=== PATIENT | female | born 1935 | race Caucasian/White ===

== ENCOUNTER → 2017-10-05 | Outpatient (CLI) | payer MEDICARE, OTHER | END | disposition home or self-care (01) | LOC: RAD 10:41 | DX: I10 Essential (primary) hypertension (principal) | CPT/HCPCS: 71046 ==

== ENCOUNTER 2018-08-29 19:36 | Emergency (ER) | payer MEDICARE, OTHER ==
[2018-08-29 20:15] LABS: ADD UMIC NO; UR ASCORBIC ACID NEGATIVE (NEGATIVE); UR BACTERIA FEW /HPF (NONE SEEN); UR BILIRUBIN (Dip) NEGATIVE (NEGATIVE); UR BLOOD (Dip) NEGATIVE (NEGATIVE); UR CLARITY SLIGHTLY CLOUDY (CLEAR); UR COLOR YELLOW (YELLOW); UR GLUCOSE (Dip) NEGATIVE (NEGATIVE); UR KETONES (Dip) NEGATIVE (NEGATIVE); UR LEUKOCYTE ESTERASE (Dip) NEGATIVE Leu/ul (NEGATIVE); UR NITRITE (Dip) NEGATIVE (NEGATIVE); UR RBC 1 /HPF (0-5); UR SQUAMOUS EPITHELIAL CELL FEW /HPF (FEW); UR TOTAL PROTEIN (Dip) NEGATIVE (NEGATIVE); UR UROBILINOGEN (Dip) NEGATIVE (NEGATIVE); UR WBC 3 /HPF (0-5)
[2018-08-29] MEDS: SOD CHLORIDE 0.9% 1,000 ML IV (20:16)
[2018-08-29 20:18] LABS: ADD MAN DIFF? NO
[2018-08-29 20:19] LABS: WHITE BLOOD COUNT 10.2 10^3/ul (4.8-10.8)
[2018-08-29 20:19] LABS: BASOPHIL # 0.1 10^3/ul (0.0-0.1); BASOPHILS % 0.6 % (0.0-2.0); EOSINOPHILS # 0.2 10^3/ul (0.0-0.5); EOSINOPHILS % 2.2 % (0.0-7.0); HEMOGLOBIN 12.7 g/dl (12.0-16.0); LYMPHOCYTES # 2.1 10^3/ul (0.8-2.9); LYMPHOCYTES % 20.4 % (15.0-51.0); MEAN CORPUSCULAR HEMOGLOBIN 27.5 pg (29.0-33.0); MEAN CORPUSCULAR HGB CONC 31.8 g/dl (32.0-37.0); MEAN CORPUSCULAR VOLUME 86.8 fl (82.0-101.0); MEAN PLATELET VOLUME 9.4 fl (7.4-10.4); MONOCYTE # 0.8 10^3/ul (0.3-0.9); MONOCYTES % 7.9 % (0.0-11.0); NEUTROPHILS % 68.2 % (39.0-77.0); PLATELET COUNT 385 10^3/UL (140-415); RED BLOOD COUNT 4.61 10^6/ul (4.20-5.40); RED CELL DISTRIBUTION WIDTH 14.6 % (11.5-14.5)
[2018-08-29 20:37] LABS: ALANINE AMINOTRANSFERASE 22 IU/L (13-69); ALBUMIN 4.6 g/dl (3.3-4.9); ALKALINE PHOSPHATASE 102 IU/L (42-121); ANION GAP 13 (5-13); ASPARTATE AMINO TRANSFERASE 49 IU/L (15-46); BILIRUBIN,INDIRECT 0.3 mg/dl (0-1.1); BILIRUBIN,TOTAL 0.3 mg/dl (0.2-1.3); BLOOD UREA NITROGEN 21 mg/dl (7-20); CALCIUM 9.9 mg/dl (8.4-10.2); CARBON DIOXIDE 29 mmol/L (21-31); CHLORIDE 99 mmol/L (97-110); GLUCOSE 182 mg/dl (70-220); LIPASE 275 U/L (23-300); POTASSIUM 4.4 mmol/L (3.5-5.1); SODIUM 141 mmol/L (135-144); TOTAL PROTEIN 9.7 g/dl (6.1-8.1)
[2018-08-29 20:49] LABS: TROPONIN-I < 0.012 ng/ml (0.000-0.120)
[2018-08-29] MEDS: ACETAMINOPHEN 500 MG TAB PO (23:15)
== END 2018-08-29 23:18 | disposition home or self-care (01) ==
LOC: E/R 19:36
DX: M79.605 Pain in left leg (principal); M79.604 Pain in right leg; I10 Essential (primary) hypertension; F17.210 Nicotine dependence, cigarettes, uncomplicated
CPT/HCPCS: 71045; 80053; 81001; 81003; 82962; 83690; 84484; 85025; 93005; 99285-25

== ENCOUNTER 2018-09-03 15:47 | Inpatient (IN) | payer MEDICARE, OTHER ==
[2018-09-03] MEDS ORDERED: ACETAMINOPHEN 325 MG TAB PO (19:30)
[2018-09-03] MEDS ORDERED: ONDANSETRON 4 MG INJ IV (19:30)
[2018-09-03 19:57] LABS: ADD MAN DIFF? NO
[2018-09-03 19:59] LABS: BASOPHIL # 0.1 10^3/ul (0.0-0.1); BASOPHILS % 0.6 % (0.0-2.0); EOSINOPHILS # 0.1 10^3/ul (0.0-0.5); EOSINOPHILS % 0.8 % (0.0-7.0); HEMATOCRIT 39.4 % (37.0-47.0); HEMOGLOBIN 12.3 g/dl (12.0-16.0); LYMPHOCYTES % 18.3 % (15.0-51.0); MEAN CORPUSCULAR HEMOGLOBIN 27.5 pg (29.0-33.0); MEAN CORPUSCULAR HGB CONC 31.2 g/dl (32.0-37.0); MEAN CORPUSCULAR VOLUME 87.9 fl (82.0-101.0); MEAN PLATELET VOLUME 9.6 fl (7.4-10.4); MONOCYTE # 0.8 10^3/ul (0.3-0.9); MONOCYTES % 7.7 % (0.0-11.0); NEUTROPHIL # 7.7 10^3/ul (1.6-7.5); NEUTROPHILS % 72.2 % (39.0-77.0); PLATELET COUNT 324 10^3/UL (140-415); RED BLOOD COUNT 4.48 10^6/ul (4.20-5.40); RED CELL DISTRIBUTION WIDTH 14.6 % (11.5-14.5)
[2018-09-03 19:59] LABS: WHITE BLOOD COUNT 10.7 10^3/ul (4.8-10.8)
[2018-09-03 20:23] LABS: MAGNESIUM 2.1 mg/dl (1.7-2.5)
[2018-09-03 20:23] LABS: ANION GAP 12 (5-13); BLOOD UREA NITROGEN 25 mg/dl (7-20); CALCIUM 9.1 mg/dl (8.4-10.2); CARBON DIOXIDE 27 mmol/L (21-31); CHLORIDE 99 mmol/L (97-110); CREATININE 1.21 mg/dl (0.44-1.00); GLUCOSE 265 mg/dl (70-220); POTASSIUM 5.1 mmol/L (3.5-5.1); SODIUM 138 mmol/L (135-144)
[2018-09-03 20:34] LABS: TROPONIN-I < 0.012 ng/ml (0.000-0.120)
[2018-09-03 20:39] LABS: FREE T4 (FREE THYROXINE) 1.46 ng/dl (0.85-1.93)
[2018-09-03] MEDS: SOD CHLORIDE 0.45% 1,000 ML IV (22:30)
[2018-09-03] MEDS: LEVOFLOXACIN 500MG/D5W (PMX) 100 ML IVPB (22:30)
[2018-09-03] MEDS ORDERED: GLUCOSE GEL 15 GRAM TUBE PO ×2 (23:30)
[2018-09-03] MEDS ORDERED: GLUCAGON 1 MG INJ IM (23:30)
[2018-09-03] MEDS ORDERED: GLUCOSE GEL 15 GRAM TUBE BUCCAL (23:30)
[2018-09-03] MEDS ORDERED: DEXTROSE 50% 50 ML SYRINGE IV ×2 (23:30)
[2018-09-04 01:49] LABS: CREATINE KINASE 57 IU/L (23-200)
[2018-09-04 02:05] LABS: CK INDEX 1.4; CK-MB 0.81 ng/ml (0.0-2.4); TROPONIN-I < 0.012 ng/ml (0.000-0.120)
[2018-09-04 05:33] LABS: ADD MAN DIFF? NO
[2018-09-04 05:46] LABS: BASOPHIL # 0.1 10^3/ul (0.0-0.1); BASOPHILS % 0.8 % (0.0-2.0); EOSINOPHILS # 0.1 10^3/ul (0.0-0.5); EOSINOPHILS % 1.8 % (0.0-7.0); HEMATOCRIT 37.3 % (37.0-47.0); HEMOGLOBIN 11.8 g/dl (12.0-16.0); LYMPHOCYTES % 26.5 % (15.0-51.0); MEAN CORPUSCULAR HEMOGLOBIN 27.6 pg (29.0-33.0); MEAN CORPUSCULAR HGB CONC 31.6 g/dl (32.0-37.0); MEAN CORPUSCULAR VOLUME 87.1 fl (82.0-101.0); MEAN PLATELET VOLUME 9.7 fl (7.4-10.4); MONOCYTE # 0.6 10^3/ul (0.3-0.9); MONOCYTES % 8.6 % (0.0-11.0); NEUTROPHIL # 4.6 10^3/ul (1.6-7.5); PLATELET COUNT 294 10^3/UL (140-415); RED BLOOD COUNT 4.28 10^6/ul (4.20-5.40); RED CELL DISTRIBUTION WIDTH 14.5 % (11.5-14.5)
[2018-09-04 05:46] LABS: WHITE BLOOD COUNT 7.4 10^3/ul (4.8-10.8)
[2018-09-04 06:17] LABS: TROPONIN-I < 0.012 ng/ml (0.000-0.120)
[2018-09-04 06:19] LABS: ANION GAP 10 (5-13); BLOOD UREA NITROGEN 22 mg/dl (7-20); CALCIUM 8.9 mg/dl (8.4-10.2); CARBON DIOXIDE 28 mmol/L (21-31); CHLORIDE 101 mmol/L (97-110); CREATININE 1.21 mg/dl (0.44-1.00); GLUCOSE 227 mg/dl (70-220); POTASSIUM 4.6 mmol/L (3.5-5.1); SODIUM 139 mmol/L (135-144)
[2018-09-04] MEDS: ACCU-CHEK XX ×4 (07:05→21:00)
[2018-09-04] MEDS: INSULIN ASPART [NOVOLOG] 3 ML PEN SC ×2 (07:18→17:48)
[2018-09-04] MEDS: LOSARTAN 50 MG TAB PO (08:41)
[2018-09-04] MEDS: ASPIRIN (EC) 81 MG TAB PO (08:41)
[2018-09-04] MEDS: HYDROCHLOROTHIAZIDE 25 MG TAB PO (08:42)
[2018-09-04] MEDS: AMLODIPINE 10 MG TAB PO (08:43)
[2018-09-04] MEDS: ENOXAPARIN 40 MG/0.4 ML SYG SC (08:53)
[2018-09-04 09:12] LABS: CREATINE KINASE 48 IU/L (23-200)
[2018-09-04 09:23] LABS: CK INDEX 1.5; CK-MB 0.73 ng/ml (0.0-2.4); TROPONIN-I < 0.012 ng/ml (0.000-0.120)
[2018-09-04] MEDS: SOD CHLORIDE 0.45% 1,000 ML IV (14:40)
[2018-09-04 18:18] LABS: CHOL/HDL RATIO 4.2 RATIO; HDL CHOLESTEROL 33 mg/dl (33-92); LDL CHOLESTEROL,CALCULATED 65 mg/dl; TRIGLYCERIDES 214 mg/dl (0-149)
[2018-09-04 18:18] LABS: CHOLESTEROL 141 mg/dl (100-200)
[2018-09-04] MEDS: ATORVASTATIN 20 MG TAB PO (20:34)
[2018-09-04] MEDS: METOPROLOL 25 MG TAB PO (20:34)
[2018-09-04] MEDS: INSULIN GLARGINE [LANTus] (100 UNITS/ML) SYG SC (20:39)
[2018-09-05 06:18] LABS: ADD MAN DIFF? NO
[2018-09-05 06:21] LABS: WHITE BLOOD COUNT 7.6 10^3/ul (4.8-10.8)
[2018-09-05 06:21] LABS: BASOPHIL # 0.1 10^3/ul (0.0-0.1); EOSINOPHILS # 0.3 10^3/ul (0.0-0.5); EOSINOPHILS % 3.5 % (0.0-7.0); HEMOGLOBIN 11.6 g/dl (12.0-16.0); LYMPHOCYTES # 2.2 10^3/ul (0.8-2.9); LYMPHOCYTES % 28.5 % (15.0-51.0); MEAN CORPUSCULAR HEMOGLOBIN 27.2 pg (29.0-33.0); MEAN CORPUSCULAR HGB CONC 31.4 g/dl (32.0-37.0); MEAN CORPUSCULAR VOLUME 86.9 fl (82.0-101.0); MEAN PLATELET VOLUME 9.6 fl (7.4-10.4); MONOCYTE # 0.6 10^3/ul (0.3-0.9); MONOCYTES % 7.7 % (0.0-11.0); NEUTROPHIL # 4.5 10^3/ul (1.6-7.5); NEUTROPHILS % 58.8 % (39.0-77.0); PLATELET COUNT 302 10^3/UL (140-415); RED BLOOD COUNT 4.26 10^6/ul (4.20-5.40); RED CELL DISTRIBUTION WIDTH 14.2 % (11.5-14.5)
[2018-09-05] MEDS: ACCU-CHEK XX ×4 (07:00→21:00)
[2018-09-05 07:03] LABS: ANION GAP 10 (5-13); BLOOD UREA NITROGEN 22 mg/dl (7-20); CALCIUM 8.9 mg/dl (8.4-10.2); CARBON DIOXIDE 26 mmol/L (21-31); CHLORIDE 102 mmol/L (97-110); CREATININE 1.15 mg/dl (0.44-1.00); GLUCOSE 229 mg/dl (70-220); POTASSIUM 4.2 mmol/L (3.5-5.1); SODIUM 138 mmol/L (135-144)
[2018-09-05] MEDS: SOD CHLORIDE 0.45% 1,000 ML IV ×2 (07:20→16:28)
[2018-09-05 08:02] LABS: HEMOGLOBIN A1C 8.6 % (0-5.9)
[2018-09-05] MEDS: LOSARTAN 50 MG TAB PO (08:14)
[2018-09-05] MEDS: AMLODIPINE 10 MG TAB PO (08:15)
[2018-09-05] MEDS: ASPIRIN (EC) 81 MG TAB PO (08:15)
[2018-09-05] MEDS: HYDROCHLOROTHIAZIDE 25 MG TAB PO (08:15)
[2018-09-05] MEDS: METOPROLOL 25 MG TAB PO ×2 (08:17→20:15)
[2018-09-05] MEDS: INSULIN ASPART [NOVOLOG] 3 ML PEN SC ×3 (08:19→17:25)
[2018-09-05] MEDS: ENOXAPARIN 30 MG/0.3 ML SYG SC (08:19)
[2018-09-05] MEDS ORDERED: INSULIN ASPART [NOVOLOG] 3 ML PEN SC (11:30)
[2018-09-05] MEDS: ACETAMINOPHEN 325 MG TAB PO (20:12)
[2018-09-05] MEDS: ATORVASTATIN 20 MG TAB PO (20:15)
[2018-09-05] MEDS: INSULIN GLARGINE [LANTus] (100 UNITS/ML) SYG SC (20:16)
[2018-09-06 06:12] LABS: ADD MAN DIFF? NO
[2018-09-06 06:20] LABS: WHITE BLOOD COUNT 7.5 10^3/ul (4.8-10.8)
[2018-09-06 06:20] LABS: BASOPHIL # 0.1 10^3/ul (0.0-0.1); BASOPHILS % 0.8 % (0.0-2.0); EOSINOPHILS # 0.3 10^3/ul (0.0-0.5); EOSINOPHILS % 4.4 % (0.0-7.0); HEMATOCRIT 38.2 % (37.0-47.0); LYMPHOCYTES # 2.5 10^3/ul (0.8-2.9); LYMPHOCYTES % 33.5 % (15.0-51.0); MEAN CORPUSCULAR HEMOGLOBIN 27.4 pg (29.0-33.0); MEAN CORPUSCULAR HGB CONC 31.4 g/dl (32.0-37.0); MEAN CORPUSCULAR VOLUME 87.2 fl (82.0-101.0); MEAN PLATELET VOLUME 9.5 fl (7.4-10.4); MONOCYTE # 0.6 10^3/ul (0.3-0.9); MONOCYTES % 7.6 % (0.0-11.0); NEUTROPHILS % 53.2 % (39.0-77.0); PLATELET COUNT 316 10^3/UL (140-415); RED BLOOD COUNT 4.38 10^6/ul (4.20-5.40); RED CELL DISTRIBUTION WIDTH 13.8 % (11.5-14.5)
[2018-09-06 06:54] LABS: ANION GAP 8 (5-13); BLOOD UREA NITROGEN 28 mg/dl (7-20); CARBON DIOXIDE 28 mmol/L (21-31); CHLORIDE 104 mmol/L (97-110); CREATININE 1.23 mg/dl (0.44-1.00); GLUCOSE 169 mg/dl (70-220); POTASSIUM 4.4 mmol/L (3.5-5.1); SODIUM 140 mmol/L (135-144)
[2018-09-06] MEDS: ACCU-CHEK XX ×4 (07:00→21:00)
[2018-09-06 07:50] LABS: HEPATITIS B SURFACE ANTIGEN NEGATIVE (NEGATIVE)
[2018-09-06] MEDS: INSULIN ASPART [NOVOLOG] 3 ML PEN SC ×3 (08:04→17:27)
[2018-09-06] MEDS: ENOXAPARIN 30 MG/0.3 ML SYG SC (08:04)
[2018-09-06] MEDS: SOD CHLORIDE 0.45% 1,000 ML IV ×2 (08:05)
[2018-09-06] MEDS: HYDROCHLOROTHIAZIDE 25 MG TAB PO (08:06)
[2018-09-06] MEDS: METOPROLOL 25 MG TAB PO ×2 (08:06→21:17)
[2018-09-06] MEDS: LOSARTAN 50 MG TAB PO (08:06)
[2018-09-06] MEDS: ASPIRIN (EC) 81 MG TAB PO (08:06)
[2018-09-06] MEDS: AMLODIPINE 10 MG TAB PO (08:06)
[2018-09-06 08:08] LABS: HEPATITIS C VIRAL ANTIBODY NEGATIVE (NEGATIVE)
[2018-09-06 12:33] LABS: MAGNESIUM 2.1 mg/dl (1.7-2.5)
[2018-09-06] MEDS: ATORVASTATIN 20 MG TAB PO (21:17)
[2018-09-06] MEDS: ACETAMINOPHEN 325 MG TAB PO (21:18)
[2018-09-06] MEDS: INSULIN GLARGINE [LANTus] (100 UNITS/ML) SYG SC (21:31)
[2018-09-07] MEDS: ACCU-CHEK XX ×3 (07:00→17:30)
[2018-09-07] MEDS: ASPIRIN (EC) 81 MG TAB PO (08:19)
[2018-09-07] MEDS: HYDROCHLOROTHIAZIDE 25 MG TAB PO (08:19)
[2018-09-07] MEDS: METOPROLOL 25 MG TAB PO (08:20)
[2018-09-07] MEDS: AMLODIPINE 10 MG TAB PO (08:20)
[2018-09-07] MEDS: LOSARTAN 50 MG TAB PO (08:20)
[2018-09-07] MEDS: INSULIN ASPART [NOVOLOG] 3 ML PEN SC ×3 (08:27→17:30)
[2018-09-07] MEDS: ENOXAPARIN 30 MG/0.3 ML SYG SC (08:28)
== END 2018-09-07 17:39 | disposition home or self-care (01) | DRG 309 ==
LOC: E/R 15:47 → 6WM 19:31
DX: R00.0 Tachycardia, unspecified (principal); N17.9 Acute kidney failure, unspecified; E11.65 Type 2 diabetes mellitus with hyperglycemia; I10 Essential (primary) hypertension; Z87.891 Personal history of nicotine dependence; R07.9 Chest pain, unspecified; D64.9 Anemia, unspecified; Z86.11 Personal history of tuberculosis
CPT/HCPCS: 36415; 71045; 71250; 80048; 80061; 82550; 82553; 82962; 83036; 83735; 84439; 84443; 84484; 85025; 86803; 87340; 93005; 93306; 93970; 99217; 99285-25

== ENCOUNTER 2018-09-27 16:01 | Inpatient (IN) | payer MEDICARE, OTHER ==
[2018-09-27 20:25] LABS: ADD MAN DIFF? NO
[2018-09-27 20:31] LABS: WHITE BLOOD COUNT 9.5 10^3/ul (4.8-10.8)
[2018-09-27 20:31] LABS: BASOPHIL # 0.1 10^3/ul (0.0-0.1); BASOPHILS % 0.5 % (0.0-2.0); EOSINOPHILS # 0.2 10^3/ul (0.0-0.5); HEMATOCRIT 33.6 % (37.0-47.0); HEMOGLOBIN 10.5 g/dl (12.0-16.0); LYMPHOCYTES # 1.8 10^3/ul (0.8-2.9); LYMPHOCYTES % 19.3 % (15.0-51.0); MEAN CORPUSCULAR HEMOGLOBIN 27.3 pg (29.0-33.0); MEAN CORPUSCULAR HGB CONC 31.3 g/dl (32.0-37.0); MEAN CORPUSCULAR VOLUME 87.5 fl (82.0-101.0); MEAN PLATELET VOLUME 9.6 fl (7.4-10.4); MONOCYTE # 0.8 10^3/ul (0.3-0.9); MONOCYTES % 8.2 % (0.0-11.0); NEUTROPHIL # 6.6 10^3/ul (1.6-7.5); NEUTROPHILS % 69.6 % (39.0-77.0); PLATELET COUNT 270 10^3/UL (140-415); RED BLOOD COUNT 3.84 10^6/ul (4.20-5.40); RED CELL DISTRIBUTION WIDTH 14.4 % (11.5-14.5)
[2018-09-27 20:55] LABS: ANION GAP 10 (5-13); BLOOD UREA NITROGEN 31 mg/dl (7-20); CALCIUM 8.6 mg/dl (8.4-10.2); CARBON DIOXIDE 30 mmol/L (21-31); CHLORIDE 94 mmol/L (97-110); CREATININE 1.53 mg/dl (0.44-1.00); GLUCOSE 147 mg/dl (70-220); POTASSIUM 4.7 mmol/L (3.5-5.1); SODIUM 134 mmol/L (135-144)
[2018-09-27] MEDS ORDERED: ACETAMINOPHEN 325 MG TAB PO (22:30)
[2018-09-27] MEDS: HYDROCODONE/APAP (5/325) TAB PO (22:49)
[2018-09-27] MEDS: SOD CHLORIDE 0.9% 1,000 ML IV (22:51)
[2018-09-27] MEDS ORDERED: GLUCAGON 1 MG INJ IM (23:00)
[2018-09-27] MEDS ORDERED: GLUCOSE GEL 15 GRAM TUBE PO ×2 (23:00)
[2018-09-27] MEDS ORDERED: DEXTROSE 50% 50 ML SYRINGE IV ×2 (23:00)
[2018-09-27] MEDS ORDERED: GLUCOSE GEL 15 GRAM TUBE BUCCAL (23:00)
[2018-09-28] MEDS: ACCU-CHEK XX ×5 (01:30→20:39)
[2018-09-28] MEDS: PANTOPRAZOLE (EC) 40 MG TAB PO (06:09)
[2018-09-28] MEDS: LEVOTHYROXINE 50 MCG TAB PO (06:09)
[2018-09-28 07:42] LABS: ALANINE AMINOTRANSFERASE 20 IU/L (13-69); ALBUMIN 3.8 g/dl (3.3-4.9); ALBUMIN/GLOBULIN RATIO 1.11; ALKALINE PHOSPHATASE 61 IU/L (42-121); ANION GAP 7 (5-13); ASPARTATE AMINO TRANSFERASE 25 IU/L (15-46); BILIRUBIN,INDIRECT 0.3 mg/dl (0-1.1); BILIRUBIN,TOTAL 0.3 mg/dl (0.2-1.3); BLOOD UREA NITROGEN 28 mg/dl (7-20); CALCIUM 8.6 mg/dl (8.4-10.2); CARBON DIOXIDE 31 mmol/L (21-31); CHLORIDE 99 mmol/L (97-110); CREATININE 1.33 mg/dl (0.44-1.00); GLUCOSE 196 mg/dl (70-220); POTASSIUM 4.5 mmol/L (3.5-5.1); SODIUM 137 mmol/L (135-144); TOTAL PROTEIN 7.2 g/dl (6.1-8.1)
[2018-09-28] MEDS: GABAPENTIN 300 MG CAP PO ×2 (08:41→20:30)
[2018-09-28] MEDS: FENOFIBRATE 145 MG TAB PO (08:41)
[2018-09-28] MEDS: METOPROLOL 25 MG TAB PO ×2 (08:42→20:30)
[2018-09-28] MEDS: AMLODIPINE 10 MG TAB PO (08:42)
[2018-09-28] MEDS: ASPIRIN (EC) 81 MG TAB PO (08:42)
[2018-09-28] MEDS: LOSARTAN 50 MG TAB PO (08:43)
[2018-09-28] MEDS: INSULIN ASPART [NOVOLOG] 3 ML PEN SC ×3 (08:45→17:03)
[2018-09-28] MEDS ORDERED: metFORMIN 500 MG TAB PO (18:00)
[2018-09-28] MEDS: ATORVASTATIN 20 MG TAB PO (20:29)
[2018-09-28] MEDS: INSULIN GLARGINE [LANTus] (100 UNITS/ML) SYG SC (20:31)
[2018-09-28] MEDS ORDERED: INSULIN GLARGINE [LANTus] (100 UNITS/ML) SYG SC (21:00)
[2018-09-28] MEDS: SENNA TAB PO (22:54)
[2018-09-29] MEDS: ACCU-CHEK XX ×5 (02:00→20:50)
[2018-09-29] MEDS: PANTOPRAZOLE (EC) 40 MG TAB PO (06:08)
[2018-09-29] MEDS: LEVOTHYROXINE 50 MCG TAB PO (06:08)
[2018-09-29] MEDS: ASPIRIN (EC) 81 MG TAB PO (08:30)
[2018-09-29] MEDS: METOPROLOL 25 MG TAB PO ×2 (08:30→20:31)
[2018-09-29] MEDS: FENOFIBRATE 145 MG TAB PO (08:30)
[2018-09-29] MEDS: AMLODIPINE 10 MG TAB PO (08:30)
[2018-09-29] MEDS: SENNA TAB PO ×2 (08:30→20:30)
[2018-09-29] MEDS: LOSARTAN 50 MG TAB PO (08:31)
[2018-09-29] MEDS: GABAPENTIN 300 MG CAP PO ×2 (08:31→20:31)
[2018-09-29] MEDS: FUROSEMIDE 20 MG INJ IV (08:31)
[2018-09-29] MEDS: HYDROCODONE/APAP (5/325) TAB PO (08:32)
[2018-09-29] MEDS: ENOXAPARIN 30 MG/0.3 ML SYG SC (08:34)
[2018-09-29] MEDS: INSULIN ASPART [NOVOLOG] 3 ML PEN SC ×3 (08:34→17:13)
[2018-09-29] MEDS ORDERED: IOHEXOL 14.3 MG(I)/ML (ADULT) BTL PO (12:00)
[2018-09-29 14:20] LABS: CARCINOEMBRYONIC ANTIGEN 0.9 ng/ml (0.0-5.0)
[2018-09-29 14:59] LABS: IMMUNOGLOBULIN G 1475 mg/dl (700-1600); IMMUNOGLOBULIN M 88 mg/dl (40-230)
[2018-09-29] MEDS: IODIXANOL LOCM 100 ML BTL (15:13)
[2018-09-29] MEDS: SOD CHLORIDE 0.9% 100 ML (15:13)
[2018-09-29 17:19] LABS: IMMUNOGLOBULIN A 439 mg/dl (70-400)
[2018-09-29] MEDS: ATORVASTATIN 20 MG TAB PO (20:30)
[2018-09-29] MEDS: INSULIN GLARGINE [LANTus] (100 UNITS/ML) SYG SC (20:48)
[2018-09-30] MEDS: ACCU-CHEK XX ×5 (01:24→21:23)
[2018-09-30 04:57] LABS: PROTEIN, TOTAL 7.6 g/dL (6.1-8.1)
[2018-09-30] MEDS: LEVOTHYROXINE 50 MCG TAB PO (06:06)
[2018-09-30] MEDS: PANTOPRAZOLE (EC) 40 MG TAB PO (06:06)
[2018-09-30 06:38] LABS: ADD MAN DIFF? NO
[2018-09-30 06:43] LABS: WHITE BLOOD COUNT 6.5 10^3/ul (4.8-10.8)
[2018-09-30 06:43] LABS: BASOPHILS % 0.6 % (0.0-2.0); EOSINOPHILS # 0.4 10^3/ul (0.0-0.5); EOSINOPHILS % 5.4 % (0.0-7.0); HEMATOCRIT 33.8 % (37.0-47.0); HEMOGLOBIN 10.7 g/dl (12.0-16.0); LYMPHOCYTES # 1.6 10^3/ul (0.8-2.9); LYMPHOCYTES % 24.9 % (15.0-51.0); MEAN CORPUSCULAR HEMOGLOBIN 27.2 pg (29.0-33.0); MEAN CORPUSCULAR HGB CONC 31.7 g/dl (32.0-37.0); MEAN PLATELET VOLUME 9.7 fl (7.4-10.4); MONOCYTE # 0.7 10^3/ul (0.3-0.9); NEUTROPHIL # 3.8 10^3/ul (1.6-7.5); NEUTROPHILS % 58.6 % (39.0-77.0); PLATELET COUNT 338 10^3/UL (140-415); RED BLOOD COUNT 3.93 10^6/ul (4.20-5.40); RED CELL DISTRIBUTION WIDTH 14.1 % (11.5-14.5)
[2018-09-30 07:12] LABS: ANION GAP 11 (5-13)
[2018-09-30 07:28] LABS: BLOOD UREA NITROGEN 29 mg/dl (7-20); CALCIUM 8.8 mg/dl (8.4-10.2); CARBON DIOXIDE 29 mmol/L (21-31); CHLORIDE 101 mmol/L (97-110); GLUCOSE 126 mg/dl (70-220); POTASSIUM 4.8 mmol/L (3.5-5.1); SODIUM 141 mmol/L (135-144)
[2018-09-30] MEDS: FUROSEMIDE 20 MG INJ IV (08:43)
[2018-09-30] MEDS: LOSARTAN 50 MG TAB PO (08:44)
[2018-09-30] MEDS: METOPROLOL 25 MG TAB PO ×2 (08:44→21:22)
[2018-09-30] MEDS: FENOFIBRATE 145 MG TAB PO (08:44)
[2018-09-30] MEDS: SENNA TAB PO ×2 (08:44→21:00)
[2018-09-30] MEDS: ASPIRIN (EC) 81 MG TAB PO (08:44)
[2018-09-30] MEDS: GABAPENTIN 300 MG CAP PO ×2 (08:44→21:20)
[2018-09-30] MEDS: AMLODIPINE 10 MG TAB PO (08:45)
[2018-09-30] MEDS: INSULIN ASPART [NOVOLOG] 3 ML PEN SC ×3 (08:47→17:12)
[2018-09-30] MEDS: ENOXAPARIN 30 MG/0.3 ML SYG SC (08:48)
[2018-09-30 16:46] LABS: ALBUMIN 3.6 g/dL (3.8-4.8); ALPHA-1-GLOBULINS 0.4 g/dL (0.2-0.3); BETA 2 GLOBULINS 0.5 g/dL (0.2-0.5); BETA GLOBULINS 0.6 g/dL (0.4-0.6); GAMMA GLOBULINS 1.5 g/dL (0.8-1.7)
[2018-09-30] MEDS: INSULIN GLARGINE [LANTus] (100 UNITS/ML) SYG SC (21:19)
[2018-09-30] MEDS: ATORVASTATIN 20 MG TAB PO (21:23)
[2018-10-01] MEDS: ACCU-CHEK XX ×5 (02:56→21:01)
[2018-10-01] MEDS: LEVOTHYROXINE 50 MCG TAB PO (07:10)
[2018-10-01] MEDS: PANTOPRAZOLE (EC) 40 MG TAB PO (07:10)
[2018-10-01] MEDS: ENOXAPARIN 30 MG/0.3 ML SYG SC (08:20)
[2018-10-01] MEDS: INSULIN ASPART [NOVOLOG] 3 ML PEN SC ×3 (08:20→18:00)
[2018-10-01] MEDS: FUROSEMIDE 20 MG INJ IV (08:21)
[2018-10-01] MEDS: ASPIRIN (EC) 81 MG TAB PO (08:21)
[2018-10-01] MEDS: METOPROLOL 25 MG TAB PO ×2 (08:22→21:00)
[2018-10-01] MEDS: FENOFIBRATE 145 MG TAB PO (08:23)
[2018-10-01] MEDS: GABAPENTIN 300 MG CAP PO ×2 (08:23→21:00)
[2018-10-01] MEDS: LOSARTAN 50 MG TAB PO (08:23)
[2018-10-01] MEDS: SENNA TAB PO ×2 (08:23→21:00)
[2018-10-01] MEDS: AMLODIPINE 10 MG TAB PO (08:23)
[2018-10-01 08:52] LABS: ANION GAP 9 (5-13); BLOOD UREA NITROGEN 34 mg/dl (7-20); CALCIUM 8.8 mg/dl (8.4-10.2); CARBON DIOXIDE 30 mmol/L (21-31); CHLORIDE 103 mmol/L (97-110); GLUCOSE 93 mg/dl (70-220); POTASSIUM 4.6 mmol/L (3.5-5.1); SODIUM 142 mmol/L (135-144)
[2018-10-01] MEDS: ATORVASTATIN 20 MG TAB PO (21:00)
[2018-10-01] MEDS: INSULIN GLARGINE [LANTus] (100 UNITS/ML) SYG SC (21:02)
[2018-10-02] MEDS: ACCU-CHEK XX ×4 (02:00→16:48)
[2018-10-02] MEDS: INSULIN ASPART [NOVOLOG] 3 ML PEN SC ×3 (08:00→16:58)
[2018-10-02] MEDS: PANTOPRAZOLE (EC) 40 MG TAB PO (08:29)
[2018-10-02] MEDS: LEVOTHYROXINE 50 MCG TAB PO (08:29)
[2018-10-02] MEDS: GABAPENTIN 300 MG CAP PO (08:33)
[2018-10-02] MEDS: ASPIRIN (EC) 81 MG TAB PO (08:33)
[2018-10-02] MEDS: SENNA TAB PO (08:33)
[2018-10-02] MEDS: METOPROLOL 25 MG TAB PO (08:33)
[2018-10-02] MEDS: FENOFIBRATE 145 MG TAB PO (08:34)
[2018-10-02] MEDS: AMLODIPINE 10 MG TAB PO (08:34)
[2018-10-02] MEDS: FUROSEMIDE 20 MG INJ IV (08:34)
[2018-10-02] MEDS: LOSARTAN 50 MG TAB PO (08:34)
[2018-10-02] MEDS: ENOXAPARIN 30 MG/0.3 ML SYG SC (08:45)
== END 2018-10-02 18:27 | disposition home or self-care (01) | DRG 103 ==
LOC: E/R 16:01 → 5EC 20:18
DX: R51 Headache (principal); M89.9 Disorder of bone, unspecified; E78.5 Hyperlipidemia, unspecified; I10 Essential (primary) hypertension; E11.9 Type 2 diabetes mellitus without complications; Z79.4 Long term (current) use of insulin; Z79.82 Long term (current) use of aspirin; Z87.891 Personal history of nicotine dependence
CPT/HCPCS: 36415; 70450; 70551; 74177; 80048; 80053; 82378; 82784; 82962; 84155; 84165; 85025; 86320; 87081; 99217; 99285-25